=== PATIENT | female | born 1960 | race Caucasian/White ===

== ENCOUNTER 2016-04-15 13:02 | Emergency (ER) | payer OTHER ==
--- NOTE | 2016-04-15 17:34 | DIAGNOSTIC IMAGING REPORT ---
PROCEDURE: XR CHEST 2 VIEW INDICATION: CHEST PAIN TECHNIQUE: PA and lateral views. COMPARISON: Chest 10/18/2015 FINDINGS: Lungs are clear. Heart and mediastinum are normal. Thorax is normal. IMPRESSION: 1. Negative chest.
--- NOTE | 2016-04-15 17:36 | ED CLINICAL REPORT ---
Clinical Report - Physicians/Mid Levels [facility] [address] [place] [address] 04/15/2016 13:02 Patient: ANGELO MURRIETA Time Seen: 13:17 Apr 15 2016. Arrived- By private vehicle. Historian- patient. CPT: ER phys charges level 5 plus (#[id number]). EKG interpretation (#[id number]). HISTORY OF PRESENT ILLNESS Chief Complaint: CHEST PAIN. It is described as located in the central chest and left chest area. At its maximum, severity described as moderate. When seen in the E.D., severity described as mild. Modifying factors- worsened by movement and deep breaths. Relieved by rest. 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 Pt states a hx of breast CA on the (L). Denies SOB). Onset. (about 1 week ago). and is still present. Onset during light activity. No nausea, vomiting, difficulty breathing or diaphoresis. Similar symptoms previously: As bad. Seen in the ED. Diagnosis: non-cardiac pain and atypical chest pain. Recent medical care: Not recently seen/assessed. REVIEW OF SYSTEMS No fever, chills, cough, pedal edema or calf pain. No fainting episodes, abdominal pain, black stools, difficulty with urination or skin rash. All systems otherwise negative, except as recorded above. PAST HISTORY Chest Wall Pain. UTI - Urinary Tract Infection. Breast Cancer. -- ADDITIONAL SURGERIES: Bilateral Tubal Ligation. Breast Implant surgery. Mastectomy. Tonsillectomy. SOCIAL HISTORY Never smoker. No alcohol use or drug use. ADDITIONAL NOTES The nursing notes have been reviewed. PHYSICAL EXAM Vital Signs: 04/15/2016 13:15 BP: 118/68. HR: 68. RR: 18. O2 saturation: 100%. Temp: 98.9 F. Pain level now: 7/10. Appearance: Alert. No acute distress. Eyes: Pupils equal, round and reactive to light. Eyes normal inspection. ENT: Ears normal. Nose normal. Pharynx normal. Neck: Normal inspection. Neck supple. CVS: Normal heart rate and rhythm. Heart sounds normal. Pulses normal. Respiratory: No respiratory distress. Chest pain reproducible with palpation of the costal cartilage and anterior chest wall, with movement of the trunk and left arm and with deep breathing. Breath sounds normal. Abdomen: Soft. Mild tenderness in the epigastric area. No guarding. Bowel sounds normal. Back: Normal external inspection. Skin: Skin warm. Normal skin color. No rash. Extremities: Extremities exhibit normal ROM. No lower extremity edema. Neuro: Oriented X 3. No motor deficit. No sensory deficit. Reflexes normal. LABS, X-RAYS, AND EKG Chest X-ray: (Recent breast prosthesis. Mild atx left base, no infiltrate). Views: PA and lateral. Technique: good. The X-rays were independently viewed by me and interpreted contemporaneously by me. Laboratory Tests: CBC w Diff: (SAMMIE: 04/15/2016 14:45) ( MsgRcvd 04/15/2016 14:59) Final results Test Result Flag Units (Reference) WHITE BLOOD COUNT 6.0 K/uL (4.5-11.5) RED BLOOD COUNT 4.59 M/uL (4.00-5.20) HEMOGLOBIN 12.7 gm/dL (12.0-16.0) HEMATOCRIT 38.5 % (36.0-46.0) MEAN CELL VOLUME 84 fL (80-100) MEAN CORPUSCULAR HGB 28 pg (26-34) MEAN CORPUSCULAR HGB CONC 33 g/dL (31-37) RED CELL DISTRIBUTION WIDTH 13.3 % (11.6-14.8) PLATELET COUNT 276 K/uL (150-400) NEUTROPHIL % 58.3 % (50-75) LYMPH % 30.8 % (25-40) MONO % 7.9 % (3-14) EOSINOPHIL % 2.3 % (0-4) BASOPHIL % 0.7 % (0-2) [id number]: (SAMMIE: 04/15/2016 14:45) ( MsgRcvd 04/15/2016 15:12) Final results Test Result Flag Units (Reference) D-DIMER QUANTITATIVE 0.35 ug/mLFEU (0.27-0.52) The primary value of this quantitative assay relates toits negative predictive value (i.e. exclusion) of pulmonaryembolism/deep vein thrombosis/DIC.Elevated levels of d-dimer may also occur with:, age, cancer, inflammation, liver disease,post-op, infection, hematoma, coronary disease, peripheralarteriopathy, bleeding disorders and thrombolytic treatment.Results should be correlated with other clinical andradiological data.Testing Methodology: Latex Immunoassay CMP: (SAMMIE: 04/15/2016 14:45) ( MsgRcvd 04/15/2016 15:13) Final results Test Result Flag Units (Reference) GLUCOSE 95 mg/dL (70-110) BUN 12 mg/dL (7-18) CREATININE 0.7 mg/dL (0.6-1.3) Estimated GFR >60 mL/min Estimated GFR- >60 mL/min Note: Persistent reduction over 3 months in eGFR<60 mL/min/1.73 m2 defines CKD. Patients with eGFR values>=60 mL/min/1.73 m2 may also have CKD if evidence ofpersistent proteinuria. Additional information may be foundat [email or web address]. SODIUM 143 mmol/L (136-145) POTASSIUM 3.7 mmol/L (3.5-5.1) CHLORIDE 106 mmol/L (98-107) CARBON DIOXIDE 24 mmol/L (21-32) CALCIUM 8.9 mg/dL (8.5-10.1) TOTAL PROTEIN 7.2 g/dL (6.4-8.2) ALBUMIN 4.0 g/dL (3.3-5.0) BILIRUBIN, TOTAL 0.3 mg/dL (0.0-1.0) ALKALINE PHOSPHATASE 69 U/L (46-116) AST (SGOT) 26 U/L (15-37) ALT (SGPT) 36 U/L (12-78) LIPASE 202 U/L (73-393) AMYLASE 40 U/L (25-115) CPK 78 U/L (24-260) . PROGRESS AND PROCEDURES Course of Care: IV normal saline. Toradol 30 mg IV Ativan 0.5 mg IV Patient is stable. Symptoms better. Patient/family counseled. Disposition: Discharged. Condition: stable. CLINICAL IMPRESSION Chest wall pain. An EKG was not performed because an etiology was evident without doing an EKG. Chest pain of GI origin (due to esophagitis) (gastritis). INSTRUCTIONS No strenuous activity. Rest. Avoid alcohol and NSAIDS. Examples of NSAIDS include aspirin, ibuprofen (Advil) and naproxen (Aleve). Avoid spicy foods. Other diet: avoid caffeine. No alcohol. Warnings: Further evaluation is necessary. SEDATIVE MEDICATION: You were given sedative medication during your visit. Do not drive or operate dangerous machinery. GENERAL WARNINGS: Return or contact your physician immediately if your condition worsens or changes unexpectedly, if not improving as expected, or if other problems arise. Your Current Medications: CONTINUE TAKING THE FOLLOWING MEDICATIONS: Tylenol with Codeine #3 Oral : prn. Prescription Medications: Oxycodone/APAP 5 mg/325 mg: take 1-2 tablets orally every 4 hours as needed for pain. Dispense twenty-five (25). No refill. Soma 350 mg: Take 1 orally every 6 hours as needed for muscle spasm. Dispense twenty (20). No refills. Substitution is permissible. Carafate 1 gm tablets: take 1 orally four times daily (1 hour before meals and at bedtime). Dispense sixty (60). No refills. Substitution is permissible. Prilosec 40 mg capsules: take 1 capsule orally every day for 14 days. Dispense fifteen (15). No refill. Substitution is permissible. Follow-up: Follow up with your doctor in one week. Call for an appointment. Understanding of the discharge instructions verbalized by patient and family. Discharge instructions reviewed with and understanding was verbalized by spouse. (Electronically signed by Aurelio Sullivan MD 04/19/2016 16:48)
--- NOTE | 2016-04-15 17:36 | ED CLINICAL REPORT ---
Clinical Report - Physicians/Mid Levels [facility] [address] [place] [address] 04/15/2016 13:02 Patient: ANGELO MURRIETA Time Seen: 13:17 Apr 15 2016. Arrived- By private vehicle. Historian- patient. CPT: ER phys charges level 5 plus (#[id number]). EKG interpretation (#[id number]). HISTORY OF PRESENT ILLNESS Chief Complaint: CHEST PAIN. It is described as located in the central chest and left chest area. At its maximum, severity described as moderate. When seen in the E.D., severity described as mild. Modifying factors- worsened by movement and deep breaths. Relieved by rest. 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 Pt states a hx of breast CA on the (L). Denies SOB). Onset. (about 1 week ago). and is still present. Onset during light activity. No nausea, vomiting, difficulty breathing or diaphoresis. Similar symptoms previously: As bad. Seen in the ED. Diagnosis: non-cardiac pain and atypical chest pain. Recent medical care: Not recently seen/assessed. REVIEW OF SYSTEMS No fever, chills, cough, pedal edema or calf pain. No fainting episodes, abdominal pain, black stools, difficulty with urination or skin rash. All systems otherwise negative, except as recorded above. PAST HISTORY Chest Wall Pain. UTI - Urinary Tract Infection. Breast Cancer. -- ADDITIONAL SURGERIES: Bilateral Tubal Ligation. Breast Implant surgery. Mastectomy. Tonsillectomy. SOCIAL HISTORY Never smoker. No alcohol use or drug use. ADDITIONAL NOTES The nursing notes have been reviewed. PHYSICAL EXAM Vital Signs: 04/15/2016 13:15 BP: 118/68. HR: 68. RR: 18. O2 saturation: 100%. Temp: 98.9 F. Pain level now: 7/10. Appearance: Alert. No acute distress. Eyes: Pupils equal, round and reactive to light. Eyes normal inspection. ENT: Ears normal. Nose normal. Pharynx normal. Neck: Normal inspection. Neck supple. CVS: Normal heart rate and rhythm. Heart sounds normal. Pulses normal. Respiratory: No respiratory distress. Chest pain reproducible with palpation of the costal cartilage and anterior chest wall, with movement of the trunk and left arm and with deep breathing. Breath sounds normal. Abdomen: Soft. Mild tenderness in the epigastric area. No guarding. Bowel sounds normal. Back: Normal external inspection. Skin: Skin warm. Normal skin color. No rash. Extremities: Extremities exhibit normal ROM. No lower extremity edema. Neuro: Oriented X 3. No motor deficit. No sensory deficit. Reflexes normal. LABS, X-RAYS, AND EKG Chest X-ray: (Recent breast prosthesis. Mild atx left base, no infiltrate). Views: PA and lateral. Technique: good. The X-rays were independently viewed by me and interpreted contemporaneously by me. Laboratory Tests: CBC w Diff: (SAMMIE: 04/15/2016 14:45) ( MsgRcvd 04/15/2016 14:59) Final results Test Result Flag Units (Reference) WHITE BLOOD COUNT 6.0 K/uL (4.5-11.5) RED BLOOD COUNT 4.59 M/uL (4.00-5.20) HEMOGLOBIN 12.7 gm/dL (12.0-16.0) HEMATOCRIT 38.5 % (36.0-46.0) MEAN CELL VOLUME 84 fL (80-100) MEAN CORPUSCULAR HGB 28 pg (26-34) MEAN CORPUSCULAR HGB CONC 33 g/dL (31-37) RED CELL DISTRIBUTION WIDTH 13.3 % (11.6-14.8) PLATELET COUNT 276 K/uL (150-400) NEUTROPHIL % 58.3 % (50-75) LYMPH % 30.8 % (25-40) MONO % 7.9 % (3-14) EOSINOPHIL % 2.3 % (0-4) BASOPHIL % 0.7 % (0-2) [id number]: (SAMMIE: 04/15/2016 14:45) ( MsgRcvd 04/15/2016 15:12) Final results Test Result Flag Units (Reference) D-DIMER QUANTITATIVE 0.35 ug/mLFEU (0.27-0.52) The primary value of this quantitative assay relates toits negative predictive value (i.e. exclusion) of pulmonaryembolism/deep vein thrombosis/DIC.Elevated levels of d-dimer may also occur with:, age, cancer, inflammation, liver disease,post-op, infection, hematoma, coronary disease, peripheralarteriopathy, bleeding disorders and thrombolytic treatment.Results should be correlated with other clinical andradiological data.Testing Methodology: Latex Immunoassay CMP: (SAMMIE: 04/15/2016 14:45) ( MsgRcvd 04/15/2016 15:13) Final results Test Result Flag Units (Reference) GLUCOSE 95 mg/dL (70-110) BUN 12 mg/dL (7-18) CREATININE 0.7 mg/dL (0.6-1.3) Estimated GFR >60 mL/min Estimated GFR- >60 mL/min Note: Persistent reduction over 3 months in eGFR<60 mL/min/1.73 m2 defines CKD. Patients with eGFR values>=60 mL/min/1.73 m2 may also have CKD if evidence ofpersistent proteinuria. Additional information may be foundat [email or web address]. SODIUM 143 mmol/L (136-145) POTASSIUM 3.7 mmol/L (3.5-5.1) CHLORIDE 106 mmol/L (98-107) CARBON DIOXIDE 24 mmol/L (21-32) CALCIUM 8.9 mg/dL (8.5-10.1) TOTAL PROTEIN 7.2 g/dL (6.4-8.2) ALBUMIN 4.0 g/dL (3.3-5.0) BILIRUBIN, TOTAL 0.3 mg/dL (0.0-1.0) ALKALINE PHOSPHATASE 69 U/L (46-116) AST (SGOT) 26 U/L (15-37) ALT (SGPT) 36 U/L (12-78) LIPASE 202 U/L (73-393) AMYLASE 40 U/L (25-115) CPK 78 U/L (24-260) . PROGRESS AND PROCEDURES Course of Care: IV normal saline. Toradol 30 mg IV Ativan 0.5 mg IV Patient is stable. Symptoms better. Patient/family counseled. Disposition: Discharged. Condition: stable. CLINICAL IMPRESSION Chest wall pain. An EKG was not performed because an etiology was evident without doing an EKG. Chest pain of GI origin (due to esophagitis) (gastritis). INSTRUCTIONS No strenuous activity. Rest. Avoid alcohol and NSAIDS. Examples of NSAIDS include aspirin, ibuprofen (Advil) and naproxen (Aleve). Avoid spicy foods. Other diet: avoid caffeine. No alcohol. Warnings: Further evaluation is necessary. SEDATIVE MEDICATION: You were given sedative medication during your visit. Do not drive or operate dangerous machinery. GENERAL WARNINGS: Return or contact your physician immediately if your condition worsens or changes unexpectedly, if not improving as expected, or if other problems arise. Your Current Medications: CONTINUE TAKING THE FOLLOWING MEDICATIONS: Tylenol with Codeine #3 Oral : prn. Prescription Medications: Oxycodone/APAP 5 mg/325 mg: take 1-2 tablets orally every 4 hours as needed for pain. Dispense twenty-five (25). No refill. Soma 350 mg: Take 1 orally every 6 hours as needed for muscle spasm. Dispense twenty (20). No refills. Substitution is permissible. Carafate 1 gm tablets: take 1 orally four times daily (1 hour before meals and at bedtime). Dispense sixty (60). No refills. Substitution is permissible. Prilosec 40 mg capsules: take 1 capsule orally every day for 14 days. Dispense fifteen (15). No refill. Substitution is permissible. Follow-up: Follow up with your doctor in one week. Call for an appointment. Understanding of the discharge instructions verbalized by patient and family. Discharge instructions reviewed with and understanding was verbalized by spouse. (Electronically signed by Aurelio Sullivan MD 04/19/2016 16:48)
--- NOTE | 2016-04-15 17:36 | ED ORDER SUMMARY ---
..... Patient: ANGELO MURRIETA OrderSheet [facility] VisitID: [id number] [place] [address] 55y, F Registration Date/Time: 04/15/2016 ORDER SHEET Weight: 66.6 kg (stated) Allergies: No Known Drug Allergy GENERAL ORDERS: CBC w Diff Urgent (14:40 04/15/2016 Genie KERNS) (14:50 Conner R.N.) CMP Urgent (14:40 04/15/2016 Genie KERNS) (14:50 Conner R.N.) Lipase Urgent (14:40 04/15/2016 Genie KERNS) (14:50 Conner R.N.) Amylase Urgent (14:40 04/15/2016 Genie KERNS) (14:50 Conner R.N.) CPK Urgent (14:40 04/15/2016 Genie KERNS) (14:50 Conner R.N.) D-Dimer Urgent (14:40 04/15/2016 Genie KERNS) (14:50 Conner R.N.) Chest 2V Urgent (16:32 04/15/2016 Genie KERNS) ([facility] (17:01 [facility]) MEDICATION ORDERS: GI Cocktail WHITE PO 50 mL (NOW) (14:39 04/15/2016 Genie KERNS) (15:14 Conner R.N.) IV FLUIDS: IV NS : initial bolus none -, then 250 mL/hr for 4h (NOW); Routine (14:38 04/15/2016 Genie KERNS) (14:52 Conner R.N.) Toradol IV 30 mg (NOW) (14:40 04/15/2016 Genie KERNS) (15:05 Conner R.N.) Ativan IV 0.5 mg (NOW) (14:40 04/15/2016 Genie KERNS) (15:16 Conner R.N.) ORDER SHEET NOTES: [Electronically signed by Nelson Lopez R.N. (19:47 04/15/2016)] [Electronically signed by Nelson Lopez R.N. (19:48 04/15/2016)] [Electronically signed by Aurelio Sullivan MD (16:48 04/19/2016)] [Electronically locked/signed by Nelson Lopez R.N. (19:47 04/15/2016)]
--- NOTE | 2016-04-15 17:36 | ED ORDER SUMMARY ---
..... Patient: ANGELO MURRIETA OrderSheet [facility] VisitID: [id number] [place] [address] 55y, F Registration Date/Time: 04/15/2016 ORDER SHEET Weight: 66.6 kg (stated) Allergies: No Known Drug Allergy GENERAL ORDERS: CBC w Diff Urgent (14:40 04/15/2016 Genie KERNS) (14:50 Conner R.N.) CMP Urgent (14:40 04/15/2016 Genie KERNS) (14:50 Conner R.N.) Lipase Urgent (14:40 04/15/2016 Genie KERNS) (14:50 Conner R.N.) Amylase Urgent (14:40 04/15/2016 Genie KERNS) (14:50 Conner R.N.) CPK Urgent (14:40 04/15/2016 Genie KERNS) (14:50 Conner R.N.) D-Dimer Urgent (14:40 04/15/2016 Genie KERNS) (14:50 Conner R.N.) Chest 2V Urgent (16:32 04/15/2016 Genie KERNS) ([facility]ck 16:51 [facility] (17:01 [facility]) MEDICATION ORDERS: GI Cocktail WHITE PO 50 mL (NOW) (14:39 04/15/2016 Genie KERNS) (15:14 Conner R.N.) IV FLUIDS: IV NS : initial bolus none -, then 250 mL/hr for 4h (NOW); Routine (14:38 04/15/2016 Genie KERNS) (14:52 Conner R.N.) Toradol IV 30 mg (NOW) (14:40 04/15/2016 Genie KERNS) (15:05 Conner R.N.) Ativan IV 0.5 mg (NOW) (14:40 04/15/2016 Genie KERNS) (15:16 Conner R.N.) ORDER SHEET NOTES: [Electronically signed by Nelson Lopez R.N. (19:47 04/15/2016)] [Electronically signed by Nelson Lopez R.N. (19:48 04/15/2016)] [Electronically signed by Aurelio Sullivan MD (16:48 04/19/2016)] [Electronically locked/signed by Nelson Lopez R.N. (19:47 04/15/2016)]
--- NOTE | 2016-04-15 17:36 | ED NURSING NOTES ---
Clinical Report - Nurses Located Within [facility] [address] [place] [address] 04/15/2016 13:02 Patient: ANGELO MURRIETA TRIAGE Triage time 13:15 Apr 15 2016. Acuity: LEVEL 3. Chief Complaint: (Chest Pain). Alert. BRANDON COMA SCORE: Pandora Coma Scale: 15- eyes open spontaneously (4); best verbal response- oriented x 4 (5); best motor response- obeys commands (6). --13:26 Nelson Lopez R.N. 13:15 04/15/16. BP: 118/68. HR: 68. RR: 18. O2 saturation: 100%. Temp: 98.9 F. Pain level now: 7/10. Additional comments: Pain becomes a 9/10 when standing. --13:26 Nelson Lopez R.N. Weight: 66.6 kg stated. Height/Length: 66 inches Per Patient. BMI: 23.7. --13:21 Nelson Lopez R.N. Medications Tylenol with Codeine #3 Oral, as needed. --13:24 Nelson Lopez R.N. Allergies No Known Drug Allergy. --13:24 Nelson Lopez R.N. Medication/allergy information source: the patient. --13:26 Nelson Lopez R.N. History Arrived by private vehicle. Historian: patient. Accompanied by son. ( Pressure under sternum and into the (L) Chest. Pt states a hx of breast CA on the (L). Denies SOB). Onset. (about 1 week ago). 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 PAST MEDICAL HX: Immunizations: status is unknown. The patient is post-menopausal. Has not received seasonal influenza immunization. SOCIAL HX: Never smoker. No alcohol use or drug use. No infectious disease exposure. ABUSE ASSESSMENT: No report of abuse. FALL RISK ASSESSMENT: Fall risk assessment completed. No fall risk identified. NUTRITIONAL RISK ASSESSMENT: The nutritional risk assessment revealed no deficiencies. FUNCTIONAL ASSESSMENT: Functional assessment: no impairments noted. LEARNING NEEDS ASSESSMENT: The learning needs assessment revealed no barriers. SKIN INTEGRITY ASSESSMENT: Skin integrity risk assessment completed. No skin integrity risk identified. --13:26 Nelson Lopez R.N. Primary physician (Ami Norman, [facility], [place]). --19:47 Nelson Lopez R.N. PROBLEMS: Chest Wall Pain. UTI - Urinary Tract Infection. Breast Cancer. --13:25 Nelson Lopez R.N. ADDITIONAL SURGERIES: Bilateral Tubal Ligation. Breast Implant surgery. Mastectomy. Tonsillectomy. --13:25 Nelson Lopez R.N. Interventions ID band on patient. To treatment room. --13:26 Nelson Lopez R.N. PHYSICAL ASSESSMENT Ambulatory to room. GENERAL / NEURO / PSYCH: Alert. Oriented X 4. HEENT: No facial asymmetry noted. Mucous membranes are pink. RESPIRATORY: Respirations not labored. CVS: Normal sinus rhythm noted. GI / : Abdomen soft. SKIN: Skin intact. Skin is warm and dry. Normal skin turgor. --13:27 Nelson Lopez R.N. NURSING PROGRESS NOTES Patient gowned. Reassurance given. Patient identifiers checked. Call light placed in reach. Side rails up x 1. Bed placed in lowest position. Brakes of bed on. Patient ready for evaluation- chart flagged and ED physician notified. --13:27 Nelson Lopez R.N. 14:52 04/15/2016 Site #1 started via IV in the right hand with an 22g angiocath, with aseptic technique and good blood return; one attempt. Blood drawn: rainbow set. Labeled in the presence of the patient and sent to the lab. Saline lock flushed with 10 mL saline. --14:52 Nelson Lopez R.N. 14:52 04/15/2016 Started bag #1 1000 mL IV Fluids IV NS (Saline); at 250 mL/hr over 4 hour(s) via site #1 via IV pump. Allergies verified and confirmed 5 rights. IV patency established. IV site checked: no pain, redness, or swelling. IV flushed thoroughly pre- and post-medication administration. --14:52 Nelson Lopez R.N. 15:05 04/15/2016 Toradol IVP 30 mg given over 2 hour(s) via site #1. Allergies verified and confirmed 5 rights. IV patency established. IV site checked: no pain, redness, or swelling. IV flushed thoroughly pre- and post-medication administration. IVP given by RN. --15:05 Nelson Lopez R.N. 15:14 04/15/2016 Maalox and Lidocaine Suspension * PO 50 mL --15:14 Nelson Lopez R.N. 15:15 04/15/2016 Ativan (LORazepam) IVP 0.5 mg given over 2 minute(s) via site #1. Allergies verified, confirmed 5 rights and sedative warning given to the patient. IV patency established. IV site checked: no pain, redness, or swelling. IV flushed thoroughly pre- and post-medication administration. IVP given by RN. --15:16 Nelson Lopez R.N. 15:30 04/15/16. BP: 103/63. HR: 57. RR: 16. O2 saturation: 100%. Pain level now: 2/10. --16:43 Nelson Lopez R.N. <<STRICKEN ENTRY-- 19:38 04/15/16. BP: 103/63. HR: 65. RR: 16. O2 saturation: 100%. Pain level now: 0/10. --19:39 Nelson Lopez R.N. --END STRIKE>> Correction. --19:43 Nelson Lopez R.N. --19:39 Nelson Lopez R.N. 17:00 04/15/16. BP: 109/64. HR: 59. RR: 16. O2 saturation: 100%. --19:41 Nelson Lopez R.N. 16:30 04/15/16. BP: 103/63. HR: 65. RR: 16. O2 saturation: 100% on room air. Pain level now: 0/10. --19:43 Nelson Lopez R.N. 17:40 04/15/2016 Site #1 removed upon discharge. Catheter intact. Pressure dressing and bandaid applied. --19:46 Nelson Lopez R.N. 17:40 04/15/2016 IV Fluids IV NS Discontinued: bag #1 infused upon discharge. Total amount infused: 900 mL. IV patency established. IV site checked: no pain, redness, or swelling. IV flushed thoroughly. --19:46 Nelson Lopez R.N. DISPOSITION / DISCHARGE 17:40 04/15/16. BP: 109/64. HR: 57. RR: 16. O2 saturation: 100% on room air. Temp: 98.5 F. Pain level now: 0/10. --19:36 Nelson Lopez R.N. Departure time: 1745. --19:36 Nelson Lopez R.N. 17:45. Condition at departure: improved. No learning barriers present. Discharge instructions provided and reviewed with the patient and the patient left prior to discharge education being provided. Reviewed medication(s) dosing and course information (prescription given to pt/spouse). Reviewed referral to family practice. Patient verbalized understanding. Written instructions provided in [place]. The patient was discharged by the physician. She was discharged home and accompanied by spouse. She left the Emergency Department ambulatory and via private vehicle. Spouse driving. FALL RISK ASSESSMENT: Fall risk assessment completed. No fall risk identified. --19:38 Nelson Lopez R.N. Locked/Released at 04/15/2016 19:48 by Nelson Lopez R.N.
--- NOTE | 2016-04-19 16:49 | ED MED RECONCILIATION SUMMARY ---
Patient: ANGELO MURRIETA Medication Reconciliation Report [facility] VisitID: [id number] [address] [place] [address] 55y, F Registration Date/Time: 04/15/2016 Weight: 66.6 kg Height/Length: 66 in. BMI: 23.7 ALLERGIES: No Known Drug Allergy The patient's Home Medications are listed below: CONTINUE TAKING THE FOLLOWING MEDICATIONS: Tylenol with Codeine #3 Oral The source(s) of the original Home Medication information: patient The following Medications were given to the patient in the Emergency Department: IV NS IV Fluids bolus 0, then 250 mL/hr, administered: 04/15/2016 2:52:00 PM Toradol [IVP] IVP 30 mg, administered: 04/15/2016 3:05:00 PM Maalox and Lidocaine Suspension PO 50 mL, administered: 04/15/2016 3:14:00 PM Ativan [IVP] IVP 0.5 mg, administered: 04/15/2016 3:15:00 PM The following Medications were prescribed to the patient: Oxycodone/APAP 5 mg/325 mg: take 1-2 tablets orally every 4 hours as needed for pain. Dispense twenty-five (25). No refill. -- Aurelio Sullivan MD Soma 350 mg: Take 1 orally every 6 hours as needed for muscle spasm. Dispense twenty (20). No refills. Substitution is permissible. -- Aurelio Sullivan MD Carafate 1 gm tablets: take 1 orally four times daily (1 hour before meals and at bedtime). Dispense sixty (60). No refills. Substitution is permissible. -- Aurelio Sullivan MD Prilosec 40 mg capsules: take 1 capsule orally every day for 14 days. Dispense fifteen (15). No refill. Substitution is permissible. -- Aurelio Sullivan MD
--- NOTE | 2016-04-19 16:49 | ED MAR SUMMARY ---
..... Medication Administration Record [facility] [address] [place] [address] Patient: ANGELO MURRIETA Visit ID: [id number] 55y, F Weight: 66.6 kg Height/Length: 66 in BMI: 23.7 ALLERGIES: No Known Drug Allergy Start 14:52 04/15/2016 Nelson Lopez R.N., Stop 17:40 04/15/2016 Nelson Lopez R.N. Medication Administered: IV NS (SALINE), Dose: IV Fluids over 4 hour(s), Rate: 250 mL/hr, Dispensed: 1000 mL bag, Site: #1 right hand. Medication Ordered: IV NS : initial bolus none -, then 250 mL/hr for 4h (NOW); Routine. Given 15:05 04/15/2016 Nelson Lopez R.N. Medication Administered: TORADOL [IVP], Dose: 30 mg IVP over 2 hour(s), Site: #1 right hand. Medication Ordered: Toradol IV 30 mg (NOW). Given 15:14 04/15/2016 Nelson Lopez R.N. Medication Administered: Maalox and Lidocaine Suspension *, Dose: 50 mL * PO. Medication Ordered: GI Cocktail WHITE PO 50 mL (NOW). Given 15:04/15/2016 Nelson Lopez R.N. Medication Administered: ATIVAN [IVP] (LORAZEPAM), Dose: 0.5 mg IVP over 2 minute(s), Site: #1 right hand. Medication Ordered: Ativan IV 0.5 mg (NOW).
--- NOTE | 2016-04-19 16:49 | ED MAR SUMMARY ---
..... Medication Administration Record [facility] [address] [place] [address] Patient: ANGELO MURRIETA Visit ID: [id number] 55y, F Weight: 66.6 kg Height/Length: 66 in BMI: 23.7 ALLERGIES: No Known Drug Allergy Start 14:52 04/15/2016 Nelson Lopez R.N., Stop 17:40 04/15/2016 Nelson Lopez R.N. Medication Administered: IV NS (SALINE), Dose: IV Fluids over 4 hour(s), Rate: 250 mL/hr, Dispensed: 1000 mL bag, Site: #1 right hand. Medication Ordered: IV NS : initial bolus none -, then 250 mL/hr for 4h (NOW); Routine. Given 15:05 04/15/2016 Nelson Lopez R.N. Medication Administered: TORADOL [IVP], Dose: 30 mg IVP over 2 hour(s), Site: #1 right hand. Medication Ordered: Toradol IV 30 mg (NOW). Given 15:14 04/15/2016 Nelson Lopez R.N. Medication Administered: Maalox and Lidocaine Suspension *, Dose: 50 mL * PO. Medication Ordered: GI Cocktail WHITE PO 50 mL (NOW). Given 15:04/15/2016 Nelson Lopez R.N. Medication Administered: ATIVAN [IVP] (LORAZEPAM), Dose: 0.5 mg IVP over 2 minute(s), Site: #1 right hand. Medication Ordered: Ativan IV 0.5 mg (NOW).
--- NOTE | 2016-04-19 16:49 | ED DISCHARGE INSTRUCTIONS ---
Patient: ANGELO MURRIETA General Instructions [facility] VisitID: [id number] [place] [address] 55y, F Registration Date/Time: 04/15/2016 Chest wall pain. An EKG was not performed because an etiology was evident without doing an EKG. Chest pain of GI origin (due to esophagitis) (gastritis). INSTRUCTIONS No strenuous activity. Rest. Avoid alcohol and NSAIDS. Examples of NSAIDS include aspirin, ibuprofen (Advil) and naproxen (Aleve). Avoid spicy foods. Other diet: avoid caffeine. No alcohol. Warnings: Further evaluation is necessary. SEDATIVE MEDICATION: You were given sedative medication during your visit. Do not drive or operate dangerous machinery. GENERAL WARNINGS: Return or contact your physician immediately if your condition worsens or changes unexpectedly, if not improving as expected, or if other problems arise. Your Current Medications: CONTINUE TAKING THE FOLLOWING MEDICATIONS: Tylenol with Codeine #3 Oral : prn. Prescription Medications: Oxycodone/APAP 5 mg/325 mg: take 1-2 tablets orally every 4 hours as needed for pain. Dispense twenty-five (25). No refill. Soma 350 mg: Take 1 orally every 6 hours as needed for muscle spasm. Dispense twenty (20). No refills. Substitution is permissible. Carafate 1 gm tablets: take 1 orally four times daily (1 hour before meals and at bedtime). Dispense sixty (60). No refills. Substitution is permissible. Prilosec 40 mg capsules: take 1 capsule orally every day for 14 days. Dispense fifteen (15). No refill. Substitution is permissible. Follow-up: Follow up with your doctor in one week. Call for an appointment. Understanding of the discharge instructions verbalized by patient and family. Discharge instructions reviewed with and understanding was verbalized by spouse. ADDITIONAL INFORMATION Chest Wall Pain: Costochondritis The chest pain that you have had today is caused by Costochondritis. This condition is due to an inflammation of the cartilage joining the ribs to the breastbone. It is not caused by heart or lung problems. Although the exact cause for costochondritis is not known, it often occurs during times of emotional stress. It can be painful, but it is not dangerous. It usually disappears within one to two weeks, but may recur. Rarely, a more serious condition may cause symptoms similar to costochondritis; therefore, watch for the warning signs listed below. Home Care: If you feel that emotional stress is a cause of your condition, try to identify sources of that stress. It may not be obvious! Learn ways to deal with the stress in your life such as regular exercise, muscle relaxation, meditation, or simply taking time out for yourself. For more information about this, consult your doctor or go to a local bookstore and review books and tapes available on the subject of stress reduction. You may use acetaminophen (Tylenol) or ibuprofen (Motrin, Advil) to control pain, unless another pain medicine was prescribed. [ NOTE: If you have liver disease or ever had a stomach ulcer, talk with your doctor before using these medicines.] The use of heat (hot wet compress or heating pad) with or without local analgesic creams (Deep Heat Rub, Omari Whitehead) will be helpful to reduce pain. Follow Up with your doctor as directed or sooner if you do not start to improve within the next two days. Get Prompt Medical Attention if any of the following occur: A change in the type of pain: if it feels different, becomes more severe, lasts longer, or spreads into your shoulder, arm, neck, jaw or back Shortness of breath or increased pain with breathing Weakness, dizziness, or fainting Cough with dark colored sputum (phlegm) or blood Abdominal pain Dark red or black stools Fever of 100.4F (38C) or higher, or as directed by your healthcare provider Chest Strain A strain of the chest is due to stretching and tearing of the muscle fibers between the ribs. This may occur as a result of severe coughing, strenuous lifting or twisting injuries of the upper back. This usually causes increased pain with movement or deep breathing. This may take a few days to a few weeks to heal. Home Care: Rest. Avoid heavy lifting or strenuous exertion. Avoid any activity that causes pain. If you have a severe cough, use a cough syrup such as Robitussin DM (containing dextromethorphan) unless another cough medicine was prescribed. You may use acetaminophen (Tylenol) or ibuprofen (Motrin, Advil) to control pain, unless another medicine was prescribed. [ NOTE: If you have chronic liver or kidney disease or ever had a stomach ulcer or GI bleeding, talk with your doctor before using these medicines.] Follow Up with your doctor as directed. Get Prompt Medical Attention if any of the following occur: A change in the type of pain: if it feels different, becomes more severe, lasts longer, or begins to spread into your shoulder, arm, neck, jaw or back Shortness of breath or increased pain with breathing Cough with dark colored sputum (phlegm) or blood Weakness, dizziness, or fainting Fever of 100.4F (38C) or higher, or as directed by your healthcare provider GERD (Adult) The esophagus is a tube that carries food from the mouth to the stomach. A valve at the lower end of the esophagus prevents stomach acid from flowing upward. If this valve does not work properly, acid from the stomach enters the esophagus. If this occurs over and over, the acid will injure the lining of the esophagus. This condition is called GERD (gastroesophageal reflux disease) or acid reflux. When stomach acid flows upward into the esophagus, it causes burning, pressure or sharp pain in the upper abdomen or mid to lower chest. The pain can spread to the neck, back, or shoulder, similar to heart pain (angina). There may be belching, an acid taste in the back of the throat, chronic cough, or sore throat or hoarseness. GERD symptoms often occur during the day after a big meal, but it can also occur at night when lying down. Smoking,as well as drinking alcohol, increases the risk of GERD. GERD is a chronic condition. Once it begins, it is often lifelong. Treatment includes changes in eating habits and the use of acid adrián medications to decrease the amount of acid in the stomach. Symptoms often improve with treatment, but if treatment is stopped, the symptoms usually return after a few months. So most persons with GERD will need to continue treatment. Home Care: Take the prescribed acid adrián medication for the full course of treatment even if you begin to feel better sooner. This medication can take up to several days to fully control your symptoms. If you cant afford the prescribed medication, you can try [id number] acid blockers, such as Pepcid AC, Tagamet, Zantac, or Aciphex. If these do not relieve your symptoms, a stronger acid-adrián can be tried, such as Prilosec OTC. You can use antacids, such as Tums, Rolaids, Mylanta, or Maalox, for pain. This will be useful the first few days after starting acid blockers when the blockers havent started working yet. Follow the directions on the label. Liquid antacids may work better than tablets. Note that antacids can interfere with absorption of certain medications. Specifically, do not take Tagamet (cimetidine), Zantac (ranitidine), or Carafate (sucralfate) within 1 hour of taking an antacid. Talk with your pharmacist if you have any questions. Limit or avoid fatty, fried, and spicy foods, as well as coffee, chocolate, mint, and foods with high acid content such as tomatoes and citrus fruit and juices (orange, grapefruit, lemon). Avoid alcohol and smoking. Dont eat large meals, especially at night. Frequent, smaller meals are best. Do not lie down right after eating. And dont eat anything 3 hours before going to bed. If you are overweight, losing weight will reduce symptoms. Women should not wear corsets or girdles because this increases pressure on the stomach and worsens reflux. If your symptoms occur during sleep, use a foam wedge to elevate your upper body (not just your head.) Or, place 4" blocks under the head of your bed. Follow Up with your doctor or as advised by our staff. Further testing may be needed. If you do not begin to improve over the next 4 days, contact your doctor. If you had an x-ray, CT scan, or ECG (electrocardiogram), it will be reviewed by a specialist. Youll be notified of any new findings that affect your care. Get Prompt Medical Attention if any of the following occur: Stomach pain gets worse or moves to the lower right abdomen (appendix area) Chest pain appears or gets worse, or spreads to the back, neck, shoulder, or arm Frequent vomiting (cant keep down liquids) Blood in the stool or vomit (red or black in color) Feeling weak or dizzy, fainting, or trouble breathing Fever of 100.4F (38C) or higher, or as directed by your healthcare provider [place] Diet A bland diet is used for patients with an upset stomach. It consists of foods that are mild and easy to digest. It is better to eat small frequent meals rather than three large meals a day. BEVERAGES OK: Fruit juices, non-caffeinated teas and coffee, non-carbonated mcintosh AVOID: Carbonated beverage, caffeinated tea and coffee, all alcoholic beverages BREAD OK: Refined white, wheat or rye bread, roxana or soda crackers, [place] toast, plain rolls, bagels AVOID: Whole-grain bread CEREAL OK: Refined cereals: cooked or ready to eat AVOID: Whole grain cereals and granola, or those containing bran, seeds or nuts DESSERTS OK: Peanut butter and all others except those to "avoid" AVOID: Chocolate, cocoa, coconut, popcorn, nuts, seeds, jam, marmalade FRUITS OK: Canned, cooked, frozen or fresh fruits without seeds or tough skin AVOID: Olives, skin and seeds of fruit MEATS OK: All fresh or preserved meat, fish and fowl AVOID: Any that are prepared with those spices to "avoid" CHEESE & EGGS OK: Eggs, cottage cheese, cream cheese, other cheeses AVOID: All cheeses made with those spices to "avoid" POTATOES & PASTA OK: Potato, rice, macaroni, noodles, spaghetti AVOID: None SOUPS OK: All soups without heavy seasoning AVOID: Soups made with those spices to "avoid" VEGETABLES OK: Canned, cooked, fresh or frozen mildly flavored vegetables without seeds, skins or coarse fiber AVOID: Vegetables prepared with those spices to "avoid"; skin and seeds of vegetables and those with coarse fiber SPICES OK: Salt, lemon and [place] juice, vinegar, all extracts, serafin, cinnamon, thyme, mace, allspice, paprika AVOID: [place] powder, cloves, pepper, seed spices, garlic, gravy pickles, highly seasoned salad dressings Oxycodone Hydrochloride, Acetaminophen Oral tablet What is this medicine? ACETAMINOPHEN; OXYCODONE (a set a TAI danette fen; ox i KOE done) is a pain reliever. It is used to treat mild to moderate pain. How should I use this medicine? Take this medicine by mouth with a full glass of water. Follow the directions on the prescription label. Take your medicine at regular intervals. Do not take your medicine more often than directed. Talk to your after school caregiver regarding the use of this medicine in children. Special care may be needed. Patients over 65 years old may have a stronger reaction and need a smaller dose. What side effects may I notice from receiving this medicine? Side effects that you should report to your doctor or health healthcare account manager as soon as possible: allergic reactions like skin rash, itching or hives, swelling of the face, lips, or tongue breathing difficulties, wheezing confusion light headedness or fainting spells severe stomach pain yellowing of the skin or the whites of the eyes Side effects that usually do not require medical attention (report to your doctor or health healthcare account manager if they continue or are bothersome): dizziness drowsiness nausea vomiting What may interact with this medicine? alcohol antihistamines barbiturates like amobarbital, butalbital, butabarbital, methohexital, pentobarbital, phenobarbital, thiopental, and secobarbital benztropine drugs for bladder problems like solifenacin, trospium, oxybutynin, tolterodine, hyoscyamine, and methscopolamine drugs for breathing problems like ipratropium and tiotropium drugs for certain stomach or intestine problems like propantheline, homatropine methylbromide, glycopyrrolate, atropine, belladonna, and dicyclomine general anesthetics like etomidate, ketamine, nitrous oxide, propofol, desflurane, enflurane, halothane, isoflurane, and sevoflurane medicines for depression, anxiety, or psychotic disturbances medicines for sleep muscle relaxants naltrexone narcotic medicines (opiates) for pain phenothiazines like perphenazine, thioridazine, chlorpromazine, mesoridazine, fluphenazine, prochlorperazine, promazine, and trifluoperazine scopolamine tramadol trihexyphenidyl What if I miss a dose? If you miss a dose, take it as soon as you can. If it is almost time for your next dose, take only that dose. Do not take double or extra doses. Where should I keep my medicine? Keep out of the reach of children. This medicine can be abused. Keep your medicine in a safe place to protect it from theft. Do not share this medicine with anyone. Selling or giving away this medicine is dangerous and against the law. Store at room temperature between 20 and 25 degrees C (68 and 77 degrees F). Keep container tightly closed. Protect from light. This medicine may cause accidental overdose and if it is taken by other adults, children, or pets. Flush any unused medicine down the toilet to reduce the chance of harm. Do not use the medicine after the expiration date. What should I tell my health care provider before I take this medicine? They need to know if you have any of these conditions: brain tumor Crohn's disease, inflammatory bowel disease, or ulcerative colitis drink more than 3 alcohol containing drinks per day drug abuse or addiction head injury heart or circulation problems kidney disease or problems going to the bathroom liver disease lung disease, asthma, or breathing problems an unusual or allergic reaction to acetaminophen, oxycodone, other opioid analgesics, other medicines, foods, dyes, or preservatives or trying to get breast-feeding What should I watch for while using this medicine? Tell your doctor or health healthcare account manager if your pain does not go away, if it gets worse, or if you have new or a different type of pain. You may develop tolerance to the medicine. Tolerance means that you will need a higher dose of the medication for pain relief. Tolerance is normal and is expected if you take this medicine for a long time. Do not suddenly stop taking your medicine because you may develop a severe reaction. Your body becomes used to the medicine. This does NOT mean you are addicted. Addiction is a behavior related to getting and using a drug for a non-medical reason. If you have pain, you have a medical reason to take pain medicine. Your doctor will tell you how much medicine to take. If your doctor wants you to stop the medicine, the dose will be slowly lowered over time to avoid any side effects. You may get drowsy or dizzy. Do not drive, use machinery, or do anything that needs mental alertness until you know how this medicine affects you. Do not stand or sit up quickly, especially if you are an older patient. This reduces the risk of dizzy or fainting spells. Alcohol may interfere with the effect of this medicine. Avoid alcoholic drinks. There are different types of narcotic medicines (opiates) for pain. If you take more than one type at the same time, you may have more side effects. Give your health care provider a list of all medicines you use. Your doctor will tell you how much medicine to take. Do not take more medicine than directed. Call emergency for help if you have problems breathing. The medicine will cause constipation. Try to have a bowel movement at least every 2 to 3 days. If you do not have a bowel movement for 3 days, call your doctor or health healthcare account manager. Do not take Tylenol (acetaminophen) or medicines that have acetaminophen with this medicine. Too much acetaminophen can be very dangerous. Many nonprescription medicines contain acetaminophen. Always read the labels carefully to avoid taking more acetaminophen. Omeprazole Magnesium Gastro-resistant tablet What is this medicine? OMEPRAZOLE (oh ME pray zol) prevents the production of acid in the stomach. It is used to treat the symptoms of heartburn. You can buy this medicine without a prescription. This product is not for long-term use, unless otherwise directed by your doctor or health healthcare account manager. How should I use this medicine? Take this medicine by mouth. Follow the directions on the product label. If you are taking this medicine without a prescription, take one tablet every day. Do not use for longer than 14 days or repeat a course of treatment more often than every 4 months unless directed by a doctor or healthcare professional. Take your dose at regular intervals every 24 hours. Swallow the tablet whole with a drink of water. Do not crush, break or chew. This medicine works best if taken on an empty stomach 30 minutes before breakfast. If you are using this medicine with the prescription of your doctor or healthcare professional, follow the directions you were given. Do not take your medicine more often than directed. Talk to your after school caregiver regarding the use of this medicine in children. Special care may be needed. What side effects may I notice from receiving this medicine? Side effects that you should report to your doctor or health healthcare account manager as soon as possible: allergic reactions like skin rash, itching or hives, swelling of the face, lips, or tongue bone, muscle or joint pain breathing problems chest pain or chest tightness dark yellow or brown urine diarrhea dizziness fast, irregular heartbeat feeling faint or lightheaded fever or sore throat muscle spasm palpitations redness, blistering, peeling or loosening of the skin, including inside the mouth seizures tremors unusual bleeding or bruising unusually weak or tired yellowing of the eyes or skin Side effects that usually do not require medical attention (Report these to your doctor or health healthcare account manager if they continue or are bothersome.): constipation dry mouth headache loose stools nausea What may interact with this medicine? Do not take this medicine with any of the following medications: atazanavir clopidogrel nelfinavir This medicine may also interact with the following medications: ampicillin certain medicines for anxiety or sleep certain medicines that treat or prevent blood clots like warfarin cyclosporine diazepam digoxin disulfiram iron salts phenytoin prescription medicine for fungal or yeast infection like itraconazole, ketoconazole, voriconazole saquinavir tacrolimus What if I miss a dose? If you miss a dose, take it as soon as you can. If it is almost time for your next dose, take only that dose. Do not take double or extra doses. Where should I keep my medicine? Keep out of the reach of children. Store at room temperature between 20 and 25 degrees C (68 and 77 degrees F). Protect from light and moisture. Throw away any unused medicine after the expiration date. What should I tell my health care provider before I take this medicine? They need to know if you have any of these conditions: black or bloody stools chest pain difficulty swallowing have had heartburn for over 3 months have heartburn with dizziness, lightheadedness or sweating liver disease stomach pain unexplained weight loss vomiting with blood wheezing an unusual or allergic reaction to omeprazole, other medicines, foods, dyes, or preservatives or trying to get breast-feeding What should I watch for while using this medicine? It can take several days before your heartburn gets better. Check with your doctor or health healthcare account manager if your condition does not start to get better, or if it gets worse. Do not treat diarrhea with over the counter products. Contact your doctor if you have diarrhea that lasts more than 2 days or if it is severe and watery. Do not treat yourself for heartburn with this medicine for more than 14 days in a row. You should only use this medicine for a 2-week treatment period once every 4 months. If your symptoms return shortly after your therapy is complete, or within the 4 month time frame, call your doctor or health healthcare account manager. You have been given the following additional information: Chest Wall Pain, Costochondritis Chest Wall Strain GERD (Adult) Diet, [place] (Adult) Oxycodone Hydrochloride, Acetaminophen Oral tablet Omeprazole Magnesium Gastro-resistant tablet No strenuous activity. Rest. (Electronically signed by Aurelio Sullivan MD 04/19/2016 16:48)
--- NOTE | 2016-04-19 16:49 | ED MED RECONCILIATION SUMMARY ---
Patient: ANGELO MURRIETA Medication Reconciliation Report [facility] VisitID: [id number] [address] [place] [address] 55y, F Registration Date/Time: 04/15/2016 Weight: 66.6 kg Height/Length: 66 in. BMI: 23.7 ALLERGIES: No Known Drug Allergy The patient's Home Medications are listed below: CONTINUE TAKING THE FOLLOWING MEDICATIONS: Tylenol with Codeine #3 Oral The source(s) of the original Home Medication information: patient The following Medications were given to the patient in the Emergency Department: IV NS IV Fluids bolus 0, then 250 mL/hr, administered: 04/15/2016 2:52:00 PM Toradol [IVP] IVP 30 mg, administered: 04/15/2016 3:05:00 PM Maalox and Lidocaine Suspension PO 50 mL, administered: 04/15/2016 3:14:00 PM Ativan [IVP] IVP 0.5 mg, administered: 04/15/2016 3:15:00 PM The following Medications were prescribed to the patient: Oxycodone/APAP 5 mg/325 mg: take 1-2 tablets orally every 4 hours as needed for pain. Dispense twenty-five (25). No refill. -- Aurelio Sullivan MD Soma 350 mg: Take 1 orally every 6 hours as needed for muscle spasm. Dispense twenty (20). No refills. Substitution is permissible. -- Aurelio Sullivan MD Carafate 1 gm tablets: take 1 orally four times daily (1 hour before meals and at bedtime). Dispense sixty (60). No refills. Substitution is permissible. -- Aurelio Sullivan MD Prilosec 40 mg capsules: take 1 capsule orally every day for 14 days. Dispense fifteen (15). No refill. Substitution is permissible. -- Aurelio Sullivan MD
== END 2016-04-15 17:45 | disposition home or self-care (01) ==
LOC: ED SRH 13:02
DX: R07.89 Other chest pain (principal); K29.70 Gastritis, unspecified, without bleeding; Z85.3 Personal history of malignant neoplasm of breast
CPT/HCPCS: 90100; 91556; 92235; 92530; 92610; 95059